=== PATIENT | female | born 1955 | race Hispanic/Latino ===

== ENCOUNTER → 2017-07-23 | Outpatient (CLI) | payer BC ==
[~2017-07-23] MED LIST: IOPAMIDOL 370 MG/ML 200 ML INFUS..BTL INJ ONE; SODIUM CHLORIDE 0.9% 50ML 50 ML ONE
[2017-07-23 12:56] LABS: BASOPHILS # (AUTO) 0.1 (0.0-0.1); BASOPHILS % 0.8 % (0.0-1.0); EOSINOPHILS # (AUTO) 0.3 (0.0-0.4); EOSINOPHILS % 3.6 % (0.0-6.0); HEMATOCRIT 36.3 % (34.2-44.1); HEMOGLOBIN 12.5 g/dL (12.0-16.0); LYMPHOCYTES # (AUTO) 2.7 (1.0-3.2); LYMPHOCYTES % 38.2 % (18.0-39.1); MEAN CORPUSCULAR HEMOGLOBIN 30.4 pg (28-32); MEAN CORPUSCULAR HGB CONC 34.4 g/dL (31-35); MEAN CORPUSCULAR VOLUME 88.3 fL (81-99); MONOCYTES # (AUTO) 0.5 (0.2-0.8); NEUTROPHILS # (AUTO) 3.6 (2.1-6.9); NEUTROPHILS % 50.3 % (38.7-80.0); PLATELET COUNT 223 x10e3/uL (140-360); RED BLOOD COUNT 4.11 x10e6/uL (3.6-5.1)
--- NOTE | 2017-07-23 13:07 | Diagnostic Imaging Report ---
PROCEDURE:CHEST 2 VIEWS TECHNIQUE:PA and lateral chest INDICATION:Thyroid cancer COMPARISON:None. FINDINGS: The lungs are clear and symmetrically inflated. No pleural effusions. Normal heart size, mediastinal contour, and pulmonary vasculature. Intact skeleton. CONCLUSION: Normal chest. Dictated by: Jose Alberto Martínez M.D. on 07/23/2017 at 13:08 Electronically approved by: Jose Alberto Martínez M.D. on 07/23/2017 at 13:08
[2017-07-23 13:17] LABS: ALANINE AMINOTRANSFERASE 16 IU/L (0-55); ALBUMIN 3.8 g/dL (3.5-5.0); ALBUMIN/GLOBULIN RATIO 1.1 (0.8-2.0); ALKALINE PHOSPHATASE 95 IU/L (40-150); ANION GAP 12.2 mmol/L (8-16); BLOOD UREA NITROGEN 13 mg/dL (7-26); BUN/CREATININE RATIO 14 (6-25); CALCIUM 9.4 mg/dL (8.4-10.2); CARBON DIOXIDE 25 mmol/L (22-29); CHLORIDE 108 mmol/L (98-107); CREATININE, SERUM 0.92 mg/dL (0.57-1.11); EST GLOMERULAR FILTRATION RATE > 60 ML/MIN (60-); GLUCOSE 92 mg/dL (74-118); POTASSIUM 4.2 mmol/L (3.5-5.1); SODIUM 141 mmol/L (136-145)
[2017-07-23 13:36] LABS: THYROID STIMULATING HORMONE 0.127 uIU/mL (0.350-4.940)
--- NOTE | 2017-07-24 08:39 | Diagnostic Imaging Report ---
Examination:CT SOFT TISSUE NECK WITH CONTRAST History: Thyroid carcinoma follow-up examination. Comparison studies: August 07, [address] Technique: Axial images from the skull base to the thoracic inlet Coronal and sagittal reformatted images. Intravenous contrast: 100mL of Omnipaque 300. Findings: Soft tissues: No abnormalities. Aerodigestive tract: Again demonstrated is medialization of the right true vocal cord with asymmetric enlargement of the right pyriform sinus and a prominent laryngeal ventricle, suggestive of right vocal cord paralysis. Lymph nodes: A homogeneous left paratracheal/ tracheoesophageal groove 1.1 cm (short axis) node is identified, unchanged from prior examination and is likely reactive given stability over the past 4 years. No radiographically significant cervical adenopathy. Vessels: Arteries and veins are patent. Thyroid gland: Prior surgical removal. Submandibular glands: Normal in size and homogeneous. Parotid glands: Normal in size and homogeneous. Orbits: No abnormalities. Paranasal sinuses: Clear. Temporal bones: No abnormalities. Skull base and facial bones: Intact. Cervical spine: Bilateral facet arthropathy from C2-C3 through C5-C6 without moderate or severe foraminal stenosis. No disc bulge or herniation or canal stenosis. IMPRESSION: 1. No new abnormality. No change from prior neck CT performed August 07, 2013 2. Prior thyroidectomy without enhancing abnormality in the thyroid bed to suggest new or recurrent tumor. 3. No cervical adenopathy. 4. Unchanged imaging findings suggestive of right vocal cord paralysis. Signed by: Dr. Zeinab Benson M.D. on 07/24/2017 8:36 AM
== END | disposition home or self-care (01) ==
LOC: CT 12:14
PROVIDERS: ATTEND Surgery
DX: C73 Malignant neoplasm of thyroid gland (principal)
CPT/HCPCS: 36415; 70491; 71046; 80053; 84443; 85025; Q9967

== ENCOUNTER → 2020-08-31 | Outpatient (CLI) | payer MEDICARE, BC | LOC: LAB 15:31 | PROVIDERS: ATTEND Surgery | DX: E07.9 Disorder of thyroid, unspecified (principal) | CPT/HCPCS: 36415; 84443 ==

== ENCOUNTER → 2021-12-11 | Outpatient (CLI) | payer MEDICARE, BC | LOC: LAB 08:59 | PROVIDERS: ATTEND Surgery | DX: Z85.850 Personal history of malignant neoplasm of thyroid (principal) | CPT/HCPCS: 36415; 84443 ==